=== PATIENT | female | born 1945 ===

== ENCOUNTER 2019-02-02 08:13 | Outpatient (CLI) | payer OTHER | END 2019-02-02 08:17 | disposition home or self-care (01) | LOC: TOM 08:13 | DX: K56.50 Intestinal adhesions [bands], unspecified as to partial versus complete obstruction (principal); R19.4 Change in bowel habit ==

== ENCOUNTER 2024-05-14 08:43 | Outpatient (CLI) | payer OTHER | END 2024-05-14 08:51 | disposition home or self-care (01) | LOC: TOM 08:43 | PROVIDERS: ATTEND Internal Medicine Gastroenterology | DX: K56.50 Intestinal adhesions [bands], unspecified as to partial versus complete obstruction (principal); R19.5 Other fecal abnormalities ==